=== PATIENT | female | born 1960 | race Two or more races ===

== ENCOUNTER 2024-05-29 06:28 | Inpatient (IN) | payer MEDICARE, MEDICAID ==
[~2024-05-29] VITALS: Ht 160 cm; Wt 92.3 kg
[2024-05-29] VITALS (7 sets, daily range): BP systolic 103–116; BP diastolic 51–80; PULSE 68–88; RESP 12–18; TEMP 97.8–98.4; O2SAT 94–99
[~2024-05-29 06:28] MED LIST: ATOR20TA PO; FENO160T PO; GABA-1250 PO; OMEP-448 PO; OXYC325T14 PO; TRAZ-228 PO
[2024-05-29] MEDS ORDERED: GLYCOPYRROLATE 0.2 MG/ML 1ML VIAL ONE (06:52)
[2024-05-29] MEDS ORDERED: PROPOFOL 10 MG/ML 20 ML IV ONE ×2 (06:52→08:35)
[2024-05-29] MEDS ORDERED: ONDANSETRON HCL 4 MG/2 ML VIAL ONE (06:53)
[2024-05-29] MEDS ORDERED: KETOROLAC TROMETH 30 MG/ML 1ML VIAL ONE (06:53)
[2024-05-29] MEDS ORDERED: DexAMETHasone SOD PHOS 10MG/1ML VIAL INJ ONE (06:53)
[2024-05-29] MEDS ORDERED: LIDOCAINE 1% INJ PF 5ML AMP ONE (06:53)
[2024-05-29] MEDS ORDERED: KETAMINE 50mg/ML 1ml syringe ONE (06:53)
[2024-05-29] MEDS: CELECOXIB 100 MG CAP PO ONE (07:00)
[2024-05-29] MEDS: ACETAMINOPHEN IV 1000 MG/100ML (10MG/ML) IV ONE (07:00)
[2024-05-29] MEDS ORDERED: SODIUM CHLORIDE LOCK 10 ML ONE (07:43)
[2024-05-29] MEDS ORDERED: EPINEPHrine HCL 1 MG/1 ML AMP ONE (08:21)
--- NOTE | 2024-05-29 09:04 | DVH ---
CLINICAL INDICATION: LEFT TOTAL HIP TECHNIQUE: 1 XY L HIP COMPLETE XRAY Comparison: None FINDINGS/IMPRESSION: : Intraoperative left hip arthroplasty.
--- NOTE | 2024-05-29 09:27 | DVHOP2 ---
Operative Report - 2 Report Details Date: 05/29/24 Preop Diagnosis: Left hip degenerative arthritis Postop Diagnosis: Left hip degenerative arthritis Surgeon: Alex Burkett MD Anesthesiologist: Juanpablo Garcia CRNA Anesthesia: Regional Drains: Nitin closed wound suction Implant: DonJoy size 10 origin stem standard offset, 0 neck length with 36 ceramic head, flat polyethylene liner, 52 acetabular shell Consent: The patient was informed of the risks and benefits of the procedure. These include but are not limited to complications of anesthesia, postoperative infection, incomplete relief of symptoms, recurrence of symptoms, damage to blood vessels, nerves and tendons, deep venous thrombosis, pulmonary embolism and possible need for repeat surgery in the future. Complications: None Estimated Blood Loss: 300 cc Fluids: See anesthesia record Findings: Denuded cartilage with eburnated bone, head osteophytes and acetabular osteophytes, acetabular cysts Indications for Surgery: Left hip degenerative arthritis with severe pain and functional impairment despite nonoperative management Name of Procedure Performed Left total hip arthroplasty Procedure Details Procedure Details: The patient was brought to the operating room and given spinal anesthetic with adequate analgesia obtained. The patient was positioned lateral decubitus with the operative side up, stabilized with hip positioners. Axillary roll applied and lower extremities well-padded. Preop patient received IV Ancef, cefepime and IV tranexamic acid. Surgical timeout was performed verifying patient, laterality and procedure. The hip and lower extremity were prepped and draped in sterile fashion. Incision was made over the greater trochanter. Subcutaneous dissection and hemostasis were performed with Bovie and aqua mantis. I identified the fascia which was incised with Bovie and Charnley retractor inserted. I identified the gluteus medius that was split at the junction of its anterior and middle thirds with Bovie then incised off the an terior greater trochanter. I incised the anterior gluteus minimus which was elevated off the capsule. I elevated the reflected head of the rectus. I then performed anterior capsulectomy with Bovie. I extended capsular incision posterior medially and superior laterally. The head was dislocated. Femoral neck cut was made with saw and head removed. Head diameter was calipered on the back table. I adjusted retractors to expose the acetabulum. I circumferentially removed labral tissue with Bovie. I removed foveal tissue with Bovie, curette and rongeur. I then began reaming sequentially paying attention to inclination and version as I went. I trialed which was stable so acetabular implant was brought into the field and tapped into the acetabulum with good fixation achieved. I then brought up the flat liner which was spun to make sure there was no soft tissue entrapment then tapped in and stability verified. I then brought my attention to the proximal femur. The leg was placed in the sterile bag anteriorly. I cleaned up soft tissue at the greater trochanter shoulder with Bovie. I then used a rongeur to clip the lateral neck. I then used a box osteotome, canal finder and lateralizing rasp. I sequentially broached to size 10. I revised the femoral neck cut with calcar planer. I trialed with a minus four neck length and [36] head which was stable. Intraoperative AP pelvis x-ray was obtained to verify length, offset and implant size. The hip was dislocated. Neck and head trial removed. The length was a little bit long so I tapped the broach down a bit further then re revise the femoral neck cut again with calcar planer. Broach was removed. I tapped in the femoral implant with good fixation achieved. I trialed with the minus four and 0 neck length heads and decided that the 0 neck length was more stable. I cleaned and dried the Fleming taper and tapped on the ceramic head. The hip was again reduced and tested for stability which was good. I irrigated with xperience. I placed a 2 grams of vancomycin in the deep and superficial wound. I repaired the minimus and medius to the anterior greater trochanter with #[5] FiberWire in running fashion . I oversewed the repair with 0 Vicryl. I repaired the fascia with #1 Ethibond interrupted [id number]. Deep subcutaneous tissue was closed with 0 Vicryl. Superficial subcutaneous tissue was closed with 2-0 Vicryl. The skin was closed with claudia. I then applied the Nitin closed wound suction. Patient tolerated the procedure well and was brought to the recovery room in stable condition. Condition Stable Disposition Still a Patient ALEX BURKETT MD May 29, 2024 09:27
[2024-05-29] MEDS ORDERED: ONDANSETRON HCL 4 MG/2 ML VIAL IV PRN ×2 (09:30→09:45)
[2024-05-29] MEDS ORDERED: HYDROmorphone HCL 2 MG/ML VL/or syr IV PRN (09:45)
[2024-05-29] MEDS ORDERED: oxyCODONE HCL 5MG TAB PO PRN (09:45)
[2024-05-29] MEDS ORDERED: hydrALAZINE HCL 20 MG/ML VL IV PRN (09:45)
[2024-05-29] MEDS ORDERED: ePHEDrine SULFATE 50 MG/ML AMP IV PRN (09:45)
[2024-05-29] MEDS ORDERED: FLUMAZENIL 0.1 MG/ML INJ 10ML MDV IV PRN (09:45)
[2024-05-29] MEDS ORDERED: NALOXONE HCL 0.4 MG/ML VIAL IV PRN (09:45)
[2024-05-29] MEDS ORDERED: fentaNYL CITRATE 100 MCG/2 ML VL IV PRN (09:45)
--- NOTE | 2024-05-29 10:02 | DVH ---
CLINICAL INDICATION: postop TECHNIQUE: 1 radiographic views of the pelvis were obtained. Comparison: None FINDINGS/IMPRESSION: There is no evidence of acute fracture or dislocation. There is severe osteoarthrosis of the right femoroacetabular joint. Status post left hip arthroplast y.
[2024-05-29] MEDS ORDERED: PHENYLEPHRINE HCL 10 MG/ML VL IV ONE (10:34)
[2024-05-29] MEDS: VANCOMYCIN HCL 1000 MG VL ONE (11:02)
[2024-05-29] MEDS: ROPIVACAINE 0.5% (5MG/ML) 20ML AMPULE IJ ONE (11:03)
[2024-05-29] MEDS: EPINEPHrine HCL 1 MG/1 ML AMP ONE (11:03)
[2024-05-29] MEDS: TRANEXAMIC ACID 20 ML ONE (11:03)
[2024-05-29] MEDS: GABAPENTIN 300 MG CAP PO ONE (11:04)
[2024-05-29] MEDS: ceFAZolin 2 GM/D5W100ml 100 ML IV ONE (11:04)
[2024-05-29] MEDS: CEFEPIME 1GM/ 50ML 50 ML IV ONE (11:05)
[2024-05-29] MEDS: GABAPENTIN 300 MG CAP ONE (11:05)
[2024-05-29] MEDS: DexAMETHasone SOD PHOS 4 MG/1ML SDV INJ ONE (11:36)
[2024-05-29] MEDS: SODIUM CHLORIDE 0.9% 1,000 ML IV SCH (11:53)
[2024-05-29] MEDS: PANTOPRAZOLE 40 MG TAB PO SCH (11:54)
[2024-05-29] MEDS: GABAPENTIN 300 MG CAP PO SCH (11:56)
[2024-05-29] MEDS: ACETAMINOPHEN 325 MG TAB PO SCH (13:12)
[2024-05-29] MEDS: HYDROmorphone HCL 2 MG/ML VL/or syr IV PRN (13:14)
[2024-05-29] MEDS: oxyCODONE HCL 5MG TAB PO PRN ×2 (15:52→23:03)
[2024-05-29] MEDS: ceFAZolin 2 GM/D5W50ml 50 ML IV SCH (15:53)
[2024-05-29] MEDS: ATORVASTATIN 20 MG TAB PO SCH (21:20)
[2024-05-29] MEDS: traZODone HCL 50 MG TAB PO SCH (21:20)
[2024-05-30 01:00] VITALS: BP 96/55; PULSE 72; RESP 18; TEMP 98.1; O2SAT 93
[2024-05-30 05:00] VITALS: BP 99/56; PULSE 71; RESP 18; TEMP 97.7; O2SAT 93
[2024-05-30 06:25] LABS: Basophils # (auto) 0 10 ^3/uL (0-0.2); Basophils % (auto) 0.1 % (0.0-2.0); Eosinophils # (auto) 0 10 ^3/uL (0-0.8); Hematocrit 27.7 % (36.0-46.0); Hemoglobin 9.7 g/dL (12.2-16.2); Lymphocytes # (auto) 1.7 10 ^3/uL (0.4-5.4); Lymphocytes % (auto) 11.7 % (10.0-50.0); Mean Corpuscular Hemoglobin 33.7 pg (28.0-32.0); Mean Corpuscular Volume 96.2 fL (80.0-100.0); Monocytes # (auto) 1.2 10 ^3/uL (0-1.3); Monocytes % (auto) 8.5 % (0.0-12.0); Neutrophils # (auto) 11.7 10 ^3/uL (1.6-8.6); Neutrophils % (auto) 79.7 % (37.0-80.0); Platelet Count (auto) 232 10^3/uL (140-450); Red Blood Cells 2.88 10^6/uL (4.0-5.20); White Blood Cell 14.6 10^3/uL (4.4-10.8)
[2024-05-30 06:38] LABS: Potassium 3.7 mmol/L (3.5-5.1); Sodium 138 mmol/L (136-145)
[2024-05-30 06:39] LABS: Anion Gap 5 (5-15); Carbon Dioxide 23 mmol/L (20-31)
[2024-05-30 06:40] LABS: Calcium 8.8 mg/dL (8.7-10.4)
[2024-05-30 06:44] LABS: BUN/Creatinine Ratio 17.2 (10.0-20.0); Blood Urea Nitrogen 10 mg/dL (9-23); Chloride 110 mmol/L (98-107); Glucose 135 mg/dL (74-106)
[2024-05-30 08:37] VITALS: BP 95/38; PULSE 70; RESP 18; TEMP 98.1; O2SAT 92
[2024-05-30] MEDS: APIXABAN 2.5 MG TAB PO SCH (08:44)
--- NOTE | 2024-05-30 12:46 | DVHDS2 ---
Discharge Summary Date of Admission May 29, 2024 at 11:28 Date of Discharge: May 30, 2024 Admitting Diagnosis Left hip degenerative arthritis Wounds: Left hip surgical wound Labs/Diagnostic Data: Laboratory Results Test 05/30/24 05:16 White Blood Count 14.6 10^3/uL (4.4-10.8) Red Blood Count 2.88 10^6/uL (4.0-5.20) Hemoglobin 9.7 g/dL (12.2-16.2) Hematocrit 27.7 % (36.0-46.0) Mean Corpuscular Volume 96.2 fL (80.0-100.0) Mean Corpuscular Hemoglobin 33.7 pg (28.0-32.0) Mean Corpuscular Hemoglobin Concent 35.0 g/dL (32.0-36.0) Red Cell Distribution Width 13.0 % (11.8-14.3) Platelet Count 232 10^3/uL (140-450) Mean Platelet Volume 7.2 fL (6.9-10.8) Neutrophils (%) (Auto) 79.7 % (37.0-80.0) Lymphocytes (%) (Auto) 11.7 % (10.0-50.0) Monocytes (%) (Auto) 8.5 % (0.0-12.0) Eosinophils (%) (Auto) 0.0 % (0.0-7.0) Basophils (%) (Auto) 0.1 % (0.0-2.0) Neutrophils # (Auto) 11.7 10 ^3/uL (1.6-8.6) Lymphocytes # (Auto) 1.7 10 ^3/uL (0.4-5.4) Monocytes # (Auto) 1.2 10 ^3/uL (0-1.3) Eosinophils # (Auto) 0 10 ^3/uL (0-0.8) Basophils # (Auto) 0 10 ^3/uL (0-0.2) Nucleated Red Blood Cells 0.0 % Sodium Level 138 mmol/L (136-145) Potassium Level 3.7 mmol/L (3.5-5.1) Chloride Level 110 mmol/L (98-107) Carbon Dioxide Level 23 mmol/L (20-31) Anion Gap 5 (5-15) Blood Urea Nitrogen 10 mg/dL (9-23) Creatinine 0.58 mg/dL (0.550-1.02) Glomerular Filtration Rate Calc 101 mL/min (>90) BUN/Creatinine Ratio 17.2 (10.0-20.0) Serum Glucose 135 mg/dL (74-106) Calcium Level 8.8 mg/dL (8.7-10.4) Other Laboratory Tests 05/30/24 05:16 Brief Hx & Hospital Course: Patient underwent left total hip arthroplasty yesterday. There were no complications. She was admitted for postop observation physical therapy and pain control. She has done well with physical therapy and pain is well- controlled. Note: Patient is a chronic pain patient who has pain management through outside provider. Operations or Procedures Left total hip arthroplasty Condition at Discharge: Stable Final Diagnosis/Problems List Left hip degenerative arthritis s/p left total hip arthroplasty Discharge Disposition: Home SNF Discharge Will this Physician continue t: Yes Discharge Instruct/Medications Diet: Regular Activity: See Comment Activity comment: Weight-bearing as tolerated with walker Follow Up/Referral: 10-14 days as scheduled Medications: Patient has pain management through private pain physician Abida pelletier for DVT prophylaxis Discharge Statement: "Patient was advised to return to the ER or call 911 if any headaches, dizziness, shortness of breath, chest pain, abdominal pain, bleeding, fevers, or worsening of medical condition. Patient was counseled about treatment plan, medications, possible side effects, patientverbalized understanding. All questions were answered to the best of my ability. This discharge took greater then 30 minutes in planning, reviewing documentation, counseling the patient, and discussing with other team members." ASSESSMENT ASSESSMENT Assessment Left hip degenerative arthritis s/p left total hip arthroplasty ALEX BURKETT MD May 30, 2024 12:46
--- NOTE | 2024-05-30 12:47 | DVHPN2 ---
Progress Note - Dictate Date Seen: May 30, 2024 Medical Necessity Reason Pt with a Central, PICC or Fol: No Subjective Patient has no complaints. vital signs Vital Sign Date Time Temp Pulse Resp B/P (MAP) Pulse Ox O2 Delivery O2 Flow Rate FiO2 05/30/24 08:37 98.1 70 18 95/38 (57) 92 98.1 05/29/24 19:47 Room Air* 0 21 Total Intake and Output 05/29/24 05/29/24 05/30/24 15:00 23:00 07:00 Intake Total 100 ml 730 ml 1000 ml Balance 100 ml 730 ml 1000 ml medications Current Medications Medications Dose Ordered Sig/Carla Route Start Time Stop Time Status Last Admin Dose Admin Atorvastatin Calcium 20 mg HS PO 05/29/24 22:00 05/29/24 21:20 20 MG Gabapentin 300 mg 6XD PO 05/29/24 12:00 05/30/24 11:43 300 MG Pantoprazole Sodium 40 mg DAILY PO 05/29/24 10:00 05/30/24 08:44 40 MG Trazodone HCl 100 mg HS PO 05/29/24 22:00 05/29/24 21:20 100 MG Apixaban 2.5 mg BID PO 05/30/24 10:00 07/04/24 09:59 05/30/24 08:44 2.5 MG Hydromorphone HCl 0.5 mg Q4H PRN IV 05/29/24 11:30 05/29/24 13:14 0.5 MG Sodium Chloride 1,000 ml @ 125 mls/hr Q8H IV 05/29/24 11:30 05/30/24 08:42 125 MLS/HR Acetaminophen 650 mg Q6HP PO 05/29/24 12:00 05/30/24 11:44 650 MG Ondansetron HCl 4 mg Q4HP PRN IV 05/29/24 09:30 Oxycodone HCl 5 mg Q4HP PRN PO 05/29/24 11:30 05/30/24 11:44 5 MG Oxycodone HCl 10 mg Q4HP PRN PO 05/29/24 11:30 05/30/24 08:43 10 MG objective Alert and oriented x4 Dressing intact No calf tenderness or edema Distal neurovascularly intact laboratory and microbiology Laboratory Tests 05/30/24 05:16 Test 05/30/24 05:16 Range/Units Serum Glucose 135 H 74-106 mg/dL Assessment/Plan Postop day 1. s/p left total hip arthroplasty Acute expected postop blood loss anemia Plan: Discharge home with instructions as ordered. Plan discussed with: Patient ALEX BURKETT MD May 30, 2024 12:47
[2024-05-30 13:00] VITALS: BP 100/48; PULSE 75; RESP 18; TEMP 97.9; O2SAT 93
[2024-05-30 15:44] VITALS: TEMP 36.6
[2024-05-30 16:37] VITALS: BP 116/56; PULSE 72; RESP 16; TEMP 98; O2SAT 97
== END 2024-05-30 17:14 | disposition home or self-care (01) | DRG 470 ==
LOC: SUR 06:28 → OVERFLOW 11:28 → WEST WING 12:32
PROVIDERS: ADMIT Orthopaedic Surgery; ATTEND Orthopaedic Surgery
PROC: 0SRB04Z Replacement of Left Hip Joint with Ceramic on Polyethylene Synthetic Substitute, Open Approach (ICD-10-PCS; principal; 2024-05-29 07:20)
DX: M16.12 Unilateral primary osteoarthritis, left hip (principal); D62 Acute posthemorrhagic anemia; G89.29 Other chronic pain; Z79.899 Other long term (current) drug therapy
CPT/HCPCS: 36415; 72170; 73502; 80048; 85025; 86850; 86900; 86901; 87081; 97110; 97116; 97163; 97530; G0378; J0131; J0171; J1100; J1885; J2405; J2704

== ENCOUNTER 2024-12-25 06:25 | Inpatient (IN) | payer MEDICARE, MEDICAID ==
[2024-12-21 10:15] LABS: Hematocrit 45.3 % (36.0-46.0); Hemoglobin 15.3 g/dL (12.2-16.2); Mean Corpuscular Hemoglobin 32.4 pg (28.0-32.0); Mean Corpuscular Volume 95.7 fL (80.0-100.0); Nucleated Red Blood Cells % 0.1 %
[2024-12-21 10:39] LABS: INR 1.03 (0.9-1.15); Partial Thromboplastin Time 25.1 SEC (24.5-34.5); Prothrombin Time 10.9 sec (9.3-11.8)
[2024-12-21 11:04] LABS: Albumin 4.8 g/dL (3.2-4.8); Alkaline Phosphatase 82 U/L (46-116); Anion Gap 4 (5-15); BUN/Creatinine Ratio 11.3 (10.0-20.0); Calcium 9.7 mg/dL (8.7-10.4); Carbon Dioxide 29 mmol/L (20-31); Potassium 3.9 mmol/L (3.5-5.1); Sodium 141 mmol/L (136-145); Total Protein 7.9 g/dL (5.7-8.2)
[2024-12-21 11:05] LABS: Bilirubin, Total 0.4 mg/dL (0.2-1.0); Urine Budding Yeast OCCASIONAL /hpf (None Seen); Urine Protein, UAD TRACE (Negative)
[2024-12-21 11:06] LABS: Alanine Aminotransferase 81 U/L (7-40); Blood Urea Nitrogen 8 mg/dL (9-23); Chloride 108 mmol/L (98-107); Glucose 122 mg/dL (74-106)
[~2024-12-25] VITALS: Ht 162.6 cm; Wt 95.1 kg
[2024-12-25] MEDS ORDERED: fentaNYL CITRATE 100 MCG/2 ML VL ONE (07:12)
[2024-12-25] MEDS ORDERED: MORPHINE SULF PF 5 MG/10 ML VIAL ONE (07:12)
[2024-12-25] MEDS ORDERED: MIDAZOLAM HCL 2MG/2ML 2ml VIAL (1mg/ml) ONE (07:13)
[2024-12-25] MEDS: TETRACAINE 1% INJ 2 ML VIAL IJ ONE (07:14)
[2024-12-25] MEDS ORDERED: PROPOFOL 10 MG/ML 20 ML IV ONE (07:53)
[2024-12-25] MEDS: BUPIVACAINE 0.25% INJ 50ML VIAL ONE (08:25)
[2024-12-25] MEDS: KETOROLAC TROMETH 30 MG/ML 1ML VIAL ONE (08:26)
[2024-12-25] MEDS: MORPHINE SULF PF 5 MG/10 ML VIAL ONE (08:26)
[2024-12-25] MEDS: VANCOMYCIN HCL 1000 MG VL ONE (08:27)
[2024-12-25] MEDS: ceFAZolin 2 GM/D5W50ml 50 ML IV ONE (08:27)
[2024-12-25] MEDS: TRANEXAMIC ACID 20 ML ONE (08:32)
[2024-12-25] MEDS: CEFEPIME 1GM/50ML 50 ML IV ONE (08:32)
--- NOTE | 2024-12-25 09:21 | DVHOP2 ---
Operative Report - 2 Report Details Date: 12/25/24 Preop Diagnosis: Right hip degenerative arthritis Postop Diagnosis: Right hip degenerative arthritis Surgeon: Alex Burkett MD Records Custodian: Rico BALES Anesthesiologist: Mary Anesthesia: Local, Regional Drains: Intin closed wound suction Implant: Judd Z one stem, plus three neck length, 36 ceramic head, G7 size 50 cup with flat liner, 20 mm acetabular screw Consent: The patient was informed of the risks and benefits of the procedure. These include but are not limited to complications of anesthesia, postoperative infection, incomplete relief of symptoms, recurrence of symptoms, damage to blood vessels, nerves and tendons, deep venous thrombosis, pulmonary embolism and possible need for repeat surgery in the future. Complications: None Estimated Blood Loss: 200 cc Fluids: See anesthesia record Findings: Denuded cartilage with eburnated bone, osteophytes Indications for Surgery: Right hip degenerative arthritis with severe pain and functional impairment despite nonoperative management Name of Procedure Performed Right total hip arthroplasty Procedure Details Procedure Details: The patient was brought to the operating room and given spinal anesthetic with adequate analgesia obtained. The patient was positioned lateral decubitus with the operative side up, stabilized with hip positioners. Axillary roll applied and lower extremities well-padded. Preop patient received IV Ancef, cefepime and IV tranexamic acid. Surgical timeout was performed verifying patient, laterality and procedure. The hip and lower extremity were prepped and draped in sterile fashion. I 1st injected local anesthetic at the incision site. Incision was made over the greater trochanter. Subcutaneous dissection and hemostasis were performed with Bovie and aqua mantis. I identified the fascia which was incised with Bovie and Charnley retractor inserted. I identified the gluteus medius that was split at the junction of its anterior and middle thirds with Bovie then incised off the anterior greater trochanter. I incised the anterior gluteus minimus which was elevated off the capsule. I elevated the reflected head of the rectus. I then performed anterior capsulectomy with Bovie. I extended capsular incision posterior medially and superior laterally. The head was dislocated. Femoral neck cut was made with saw and head removed. Head diameter was calipered on the back table. I adjusted retractors to expose the acetabulum. I circumferentially removed labral tissue with Bovie. I removed foveal tissue with Bovie, curette and rongeur. I then began reaming sequentially paying attention to inclination and version as I went. I under reamed by 1 mm. I trialed which was stable so acetabular implant was brought into the field and tapped into the acetabulum with fairly good fixation achieved. I decided to place an acetabular screw for additional fixation. I closed the central hole with the cap. I removed the cap for the acetabular screw. I then drilled and applied a 20 mm acetabular screw with good bite achieved. I then brought up the flat liner which was spun to make sure there was no soft tissue entrapment then tapped in and stability verified. I then brought my attention to the proximal femur. The leg was placed in the sterile bag anteriorly. I cleaned up soft tissue at the greater trochanter shoulder with Bovie. I then used a rongeur to clip the lateral neck. I then used a box osteotome, canal finder and lateralizing rasp. I sequentially broached to size four. I revised the femoral neck cut with calcar planer. I trialed with a [0] neck length and [36] head which was reasonably stable. Intraoperative AP pelvis x-ray was obtained to verify length, offset and implant size. Based on x-ray decided to increase the neck length. The hip was dislocated. Neck and head trial removed. Broach was removed. I tapped in the femoral implant with good fixation achieved. I trialed with a plus three which was stable. I cleaned and dried the Fleming taper and tapped on the ceramic head. The hip was again reduced and tested for stability which was good. I irrigated with bactisurge. [I injected soft tissue with local anesthetic which consisted of 40 cc of 0.25% Marcaine with epinephrine, 30 mg Toradol, 10 mL with Duramorph consisting of 5 mg.] I placed a 2 grams of vancomycin in the deep and superficial wound. I repaired the minimus and medius to the anterior greater trochanter with #[5] FiberWire in running fashion . I oversewed the repair with 0 Vicryl. I repaired the fascia with #1 Ethibond interrupted [id number]. Deep subcutaneous tissue was closed with 0 Vicryl. Superficial subcutaneous tissue was closed with 2-0 Vicryl. The skin was closed with claudia. I then applied the Nitin closed wound suction. Patient tolerated the procedure well and was brought to the recovery room in stable condition. Condition Stable Disposition Still a Patient ALEX BURKETT MD Dec 25, 2024 09:21
[2024-12-25] MEDS ORDERED: ONDANSETRON HCL 4 MG/2 ML VIAL IV PRN ×2 (09:30→09:45)
[2024-12-25 09:32] VITALS: PULSE 56; RESP 12; O2SAT 97
[2024-12-25] MEDS ORDERED: HYDROmorphone HCL 2 MG/ML VL/or syr IV PRN (09:45)
[2024-12-25] MEDS ORDERED: hydrALAZINE HCL 20 MG/ML VL IV PRN (09:45)
[2024-12-25] MEDS ORDERED: diphenhdrAMINE HCL 50 MG/1 ML VL IV PRN (09:45)
[2024-12-25] MEDS ORDERED: MIDAZOLAM HCL 2MG/2ML 2ml VIAL (1mg/ml) IV PRN (09:45)
[2024-12-25] MEDS ORDERED: NALOXONE HCL 0.4 MG/ML VIAL IV PRN (09:45)
[2024-12-25] MEDS ORDERED: PATIENTS OWN MEDICATION (Omeprazole (Omeprazole Dr) 40 MG) PO SCH (10:00)
[2024-12-25] MEDS: PREGABALIN 25 MG CAP PO SCH (10:13)
[2024-12-25 10:15] VITALS: PULSE 69; RESP 20; O2SAT 95
--- NOTE | 2024-12-25 10:34 | DVH ---
CLINICAL INDICATION: postop TECHNIQUE: 1 radiographic views of the pelvis were obtained. Comparison: XY R HIP 1V XRAY on DOS: 12/25/24, XY PELVIS AP on DOS: 05/29/24, XY L HIP COMPLETE XRAY on DOS: 05/29/24 FINDINGS/IMPRESSION: There is no evidence of acute fracture or dislocation. Status post bilateral hip arthroplasties.
[2024-12-25] MEDS: SODIUM CHLORIDE 0.9% 1,000 ML IV SCH (10:40)
[2024-12-25] MEDS: ATORVASTATIN 20 MG TAB PO SCH (11:03)
[2024-12-25] MEDS: PANTOPRAZOLE 40 MG TAB PO SCH (11:03)
[2024-12-25] MEDS: KETOROLAC TROMETH 30 MG/ML 1ML VIAL IV SCH (11:44)
[2024-12-25] MEDS: ACETAMINOPHEN 325 MG TAB PO SCH (11:45)
--- NOTE | 2024-12-25 15:28 | DVH ---
RIGHTLEFT HIP RADIOGRAPH. CLINICAL INDICATION: INTRA OP TECHNIQUE: Single-view pelvis intraop COMPARISON: Prior exam dated FINDINGS: Intraoperative view of the pelvis obtained. Surgical hardware seen in the region of the rig ht hip. IMPRESSION: 1. Single intraoperative view of the pelvis
[2024-12-25] MEDS: ceFAZolin 2 GM/D5W50ml 50 ML IV SCH (16:45)
[2024-12-25 16:55] VITALS: BP 108/60; PULSE 64; PULSE 75; RESP 18; TEMP 97.8; O2SAT 95
[2024-12-25 17:00] VITALS: BP 102/56; PULSE 66; RESP 18; TEMP 97.9; O2SAT 97
[2024-12-25 20:00] VITALS: PULSE 67; PULSE 73; RESP 17; O2SAT 95
[2024-12-25 21:00] VITALS: BP 93/57; PULSE 67; RESP 17; TEMP 98.8; O2SAT 95
[2024-12-26 01:00] VITALS: BP 90/55; PULSE 71; RESP 18; TEMP 98.5; O2SAT 96
[2024-12-26 05:00] VITALS: BP_SYST 103; BP_SYST 150; BP_DIAS 55; BP_DIAS 76; PULSE 66; PULSE 67; RESP 17; RESP 18; TEMP 97.7; TEMP 98.4; O2SAT 95; O2SAT 99
[2024-12-26 06:47] LABS: Hematocrit 30.9 % (36.0-46.0); Hemoglobin 10.8 g/dL (12.2-16.2); Mean Corpuscular Hemoglobin 33.3 pg (28.0-32.0); Mean Corpuscular Volume 95.3 fL (80.0-100.0); Nucleated Red Blood Cells % 0.0 %
[2024-12-26 06:48] LABS: Anion Gap 5 (5-15); Carbon Dioxide 25 mmol/L (20-31); Potassium 3.7 mmol/L (3.5-5.1); Sodium 139 mmol/L (136-145)
[2024-12-26 06:54] LABS: BUN/Creatinine Ratio 14.9 (10.0-20.0); Blood Urea Nitrogen 10 mg/dL (9-23)
[2024-12-26 06:58] LABS: Calcium 8.7 mg/dL (8.7-10.4); Chloride 109 mmol/L (98-107); Glucose 175 mg/dL (74-106)
[2024-12-26 08:00] VITALS: PULSE 64; PULSE 74; RESP 19; O2SAT 97
[2024-12-26 08:44] VITALS: BP 119/76; PULSE 74; RESP 19; TEMP 97.9; O2SAT 97
[2024-12-26] MEDS: APIXABAN 2.5 MG TAB PO SCH (09:52)
[2024-12-26] MEDS: HYDROmorphone HCL 2 MG/ML VL/or syr IV PRN (09:52)
--- NOTE | 2024-12-26 11:38 | DVHDS2 ---
Discharge Summary Date of Admission Dec 25, 2024 at 10:21 Date of Discharge: Dec 26, 2024 Labs/Diagnostic Data: Laboratory Results Test 12/26/24 04:56 12/21/24 10:05 White Blood Count 13.4 10^3/uL (4.4-10.8) Red Blood Count 3.25 10^6/uL (4.0-5.20) Hemoglobin 10.8 g/dL (12.2-16.2) Hematocrit 30.9 % (36.0-46.0) Mean Corpuscular Volume 95.3 fL (80.0-100.0) Mean Corpuscular Hemoglobin 33.3 pg (28.0-32.0) Mean Corpuscular Hemoglobin Concent 35.0 g/dL (32.0-36.0) Red Cell Distribution Width 13.6 % (11.8-14.3) Platelet Count 209 10^3/uL (140-450) Mean Platelet Volume 7.9 fL (6.9-10.8) Neutrophils (%) (Auto) 74.3 % (37.0-80.0) Lymphocytes (%) (Auto) 13.6 % (10.0-50.0) Monocytes (%) (Auto) 12.0 % (0.0-12.0) Eosinophils (%) (Auto) 0.0 % (0.0-7.0) Basophils (%) (Auto) 0.1 % (0.0-2.0) Neutrophils # (Auto) 9.9 10 ^3/uL (1.6-8.6) Lymphocytes # (Auto) 1.8 10 ^3/uL (0.4-5.4) Monocytes # (Auto) 1.6 10 ^3/uL (0-1.3) Eosinophils # (Auto) 0 10 ^3/uL (0-0.8) Basophils # (Auto) 0 10 ^3/uL (0-0.2) Nucleated Red Blood Cells 0.0 % Sodium Level 139 mmol/L (136-145) Potassium Level 3.7 mmol/L (3.5-5.1) Chloride Level 109 mmol/L (98-107) Carbon Dioxide Level 25 mmol/L (20-31) Anion Gap 5 (5-15) Blood Urea Nitrogen 10 mg/dL (9-23) Creatinine 0.67 mg/dL (0.550-1.02) Glomerular Filtration Rate Calc 97 mL/min (>90) BUN/Creatinine Ratio 14.9 (10.0-20.0) Serum Glucose 175 mg/dL (74-106) Calcium Level 8.7 mg/dL (8.7-10.4) Prothrombin Time 10.9 sec (9.3-11.8) Prothrombin Time INR 1.03 (0.9-1.15) Activated Partial Thromboplast Time 25.1 SEC (24.5-34.5) Urine Color Yellow (Yellow) Urine Clarity Turbid (Clear) Urine pH 5.5 (5.0-9.0) Urine Specific Angela 1.027 (1.001-1.035) Urine Protein Trace (Negative) Urine Ketones Negative (Negative) Urine Blood Negative /uL (Negative) Urine Nitrite Negative (Negative) Urine Bilirubin Negative (Negative) Urine Urobilinogen 2 mg/dL (Negative) Urine Leukocyte Esterase Negative /uL (Negative) Urine RBC <1 /hpf (0 - 4) Urine Microscopic WBC 7 /HPF (0-5) Urine Squamous Epithelial Cells Few /hpf (<5) Urine Bacteria Few /hpf (None Seen) Urine Hyaline Casts Few /lpf (0 - 2) Urine Mucus Few (None Seen) Urine Yeast (Budding) Occasional /hpf (None Urine Glucose Normal mg/dL (Normal) Total Bilirubin 0.4 mg/dL (0.2-1.0) Aspartate Amino Transferase (AST) 79 U/L (13-40) Alanine Aminotransferase (ALT) 81 U/L (7-40) Alkaline Phosphatase 82 U/L (46-116) Total Protein 7.9 g/dL (5.7-8.2) Albumin 4.8 g/dL (3.2-4.8) Other Laboratory Tests 12/26/24 04:56 Brief Hx & Hospital Course: Patient was brought to the hospital yesterday to undergo a right total hip arthroplasty. She tolerated the procedure well without complications and was kept overnight for postoperative observation. She has remained medically stable denying any overnight events and reports some postoperative hip pain that is being well managed with the help of pain medication. Patient reports that she was able to get up and walk with the help of physical therapy and her walker yesterday as well as this morning and was able to get down the harrison around the nurses station and back to her room with some postoperative hip pain that was tolerable. Patient is otherwise feeling well denying any other complaints or concerns during today's evaluation and is ready to go home. Condition at Discharge: Stable Final Diagnosis/Problems List Right hip degenerative arthritis Discharge Disposition: Home Discharge Instruct/Medications Diet: Regular Activity: No Restrictions, As Tolerated Activity comment: Patient to remain weight-bearing as tolerated with the assistance of a walker Follow Up/Referral: I instructed the patient to follow up with our office in 10-14 days for her 1st postoperative evaluation Medications: Rx sent via our outpatient EMR system Scheduled Atorvastatin Calcium (Lipitor), 20 MG PO DAILY, (Reported) Fenofibrate (Fenofibrate), 160 MG PO DAILY, (Reported) Gabapentin (Gabapentin), 300 MG PO 6XD, (Reported) Omeprazole (Omeprazole Dr), 40 MG PO DAILY, (Reported) Oxycodone W/ Acetaminophen (Apap/Oxycodone), 1 TAB PO 6XD, (Reported) Trazodone Hcl (Trazodone Hcl), 100 MG PO DAILY, (Reported) Discharge Statement: "Patient was advised to return to the ER or call 911 if any headaches, dizziness, shortness of breath, chest pain, abdominal pain, bleeding, fevers, or worsening of medical condition. Patient was counseled about treatment plan, medications, possible side effects, patientverbalized understanding. All questions were answered to the best of my ability. This discharge took greater then 30 minutes in planning, reviewing documentation, counseling the patient, and discussing with other team members." ASSESSMENT ASSESSMENT Assessment Right hip degenerative arthritis NIKOLAS CHRISTIANSON Dec 26, 2024 11:38
--- NOTE | 2024-12-26 11:40 | DVHPN2 ---
Progress Note - Dictate Date Seen: Dec 26, 2024 Medical Necessity Reason Pt with a Central, PICC or Fol: No Subjective Patient was lying comfortably in bed during my evaluation reports some postoperative hip pain that is being well managed with the help of pain medication. Patient reports that she was able to get up and walk with the help of physical therapy and her walker and was able to get down the harrison around the nurses station and back to her bed with some postoperative hip pain that was tolerable. Patient is otherwise feeling well denying any other complaints or concerns during today's evaluation and would like to go home. vital signs Vital Sign Date Time Temp Pulse Resp B/P (MAP) Pulse Ox O2 Delivery O2 Flow Rate FiO2 12/26/24 09:52 74 19 119/76 12/26/24 08:44 97.9 97 97.9 12/25/24 20:00 Nasal Cannula* 2 28 Total Intake and Output 12/25/24 12/25/24 12/26/24 15:00 23:00 07:00 Intake Total 120 ml 450 ml 200 ml Balance 120 ml 450 ml 200 ml medications Current Medications Medications Dose Ordered Sig/Carla Route Start Time Stop Time Status Last Admin Dose Admin Atorvastatin Calcium 20 mg DAILY PO 12/25/24 10:00 12/26/24 09:52 20 MG Patient Own Medication 40 mg DAILY PO 12/25/24 10:00 UNV Patient Own Medication 100 mg DAILY PO 12/25/24 10:00 UNV Pregabalin 50 mg BID PO 12/25/24 10:00 12/26/24 11:08 50 MG Apixaban 2.5 mg BID PO 12/26/24 10:00 01/30/25 09:59 12/26/24 09:52 2.5 MG Hydromorphone HCl 0.5 mg Q4H PRN IV 12/25/24 11:30 12/26/24 09:52 0.5 MG Sodium Chloride 1,000 ml @ 125 mls/hr Q8H IV 12/25/24 11:30 12/25/24 21:48 125 MLS/HR Acetaminophen 650 mg Q6HP PO 12/25/24 12:00 12/26/24 05:47 650 MG Ketorolac Tromethamine 15 mg Q6HR IV 12/25/24 12:00 12/30/24 11:59 12/26/24 05:49 15 MG Ondansetron HCl 4 mg Q4HP PRN IV 12/25/24 09:30 Oxycodone HCl 5 mg Q4HP PRN PO 12/25/24 11:30 12/26/24 07:25 5 MG Oxycodone HCl 10 mg Q4HP PRN PO 12/25/24 11:30 12/26/24 02:28 10 MG Diphenhydramine HCl 25 mg Q4HP PRN IV 12/25/24 09:45 Ondansetron HCl 4 mg Q4HP PRN IV 12/25/24 09:45 UNV Pantoprazole Sodium 40 mg DAILY PO 12/25/24 10:00 12/26/24 09:52 40 MG Trazodone HCl 100 mg HS PO 12/25/24 22:00 12/25/24 21:43 100 MG objective A&O x4 in no acute distress Hip range of motion grossly limited with pain on movement Nitin dressing clean, dry, intact, and maintaining suction No distal edema or calf tenderness to palpation Neurovascularly intact with cap refill less than 2 seconds laboratory and microbiology Laboratory Tests 12/26/24 04:56 Test 12/26/24 04:56 Range/Units Serum Glucose 175 H 74-106 mg/dL Assessment/Plan Patient to be discharged home and advised to remain weight-bearing as tolerated with the assistance of a walker. I instructed the patient to maintain her dressing clean, dry, intact, and maintaining suction and to call our office to schedule her 1st postoperative evaluation in 10-14 days and if she has any further questions or concerns. Rx sent via our outpatient EMR system. She understood and agreed. Plan discussed with: Patient NIKOLAS CHRISTIANSON Dec 26, 2024 11:40
[2024-12-26] MEDS ORDERED: PHENYLEPHRINE HCL 10 MG/ML VL IV ONE (12:57)
[2024-12-26 13:00] VITALS: BP 120/76; PULSE 72; RESP 16; TEMP 97.7; O2SAT 98
[2024-12-26 13:12] VITALS: BP 120/76; PULSE 69; RESP 16; TEMP 97.7; O2SAT 98
== END 2024-12-26 14:05 | disposition home or self-care (01) | DRG 470 ==
LOC: SUR 06:25 → OVERFLOW 10:21 → TELE-CENTR 14:42
PROVIDERS: ADMIT Orthopaedic Surgery; ATTEND Orthopaedic Surgery
PROC: 0SR903Z Replacement of Right Hip Joint with Ceramic Synthetic Substitute, Open Approach (ICD-10-PCS; principal; 2024-12-25 07:21)
DX: M16.11 Unilateral primary osteoarthritis, right hip (principal); Z79.899 Other long term (current) drug therapy
CPT/HCPCS: 36415; 72170; 73501; 80048; 80053; 81001; 85025; 85610; 85730; 86850; 86900; 86901; 97110; 97116; 97163; G0378; J1100; J1885; J2250; J2704; J3490